=== PATIENT | male | born 1980 | race Caucasian/White ===

== ENCOUNTER 2018-02-18 20:04 | Emergency (ER) | payer OTHER ==
[~2018-02-18] VITALS: Ht 177.8 cm; Wt 83.9 kg
== END 2018-02-18 21:54 | disposition home or self-care (01) ==
LOC: ER 20:04
DX: K59.09 Other constipation (principal); K64.4 Residual hemorrhoidal skin tags

== ENCOUNTER 2022-05-16 04:47 | Outpatient (CLI) | payer OTHER | END 2022-05-16 23:00 | disposition home or self-care (01) | LOC: LAB 04:47 | PROVIDERS: ATTEND Obstetrics & Gynecology | DX: Z20.828 Contact with and (suspected) exposure to other viral communicable diseases (principal); Z20.818 Contact with and (suspected) exposure to other bacterial communicable diseases ==